=== PATIENT | female | born 1995 ===

== ENCOUNTER 2024-02-18 08:32 | Outpatient (AMB) | payer OTHER, SELFPAY ==
--- NOTE | 2024-02-18 08:33 | MHC.OFFVIS ---
Vital Signs 02/18/24 08:41 Height 5 ft 2 in Weight 202 lb 6.15 oz BMI 37.0 BP 124/74 Blood Pressure Location Rt brachial Position Sitting Pulse 97 Intake Visit Reasons: Abdominal pain/Nausea/Bloating Intake Note: New patient in office today for abd pain, nausea, and abdominal bloating. CC: Patient c/o nausea, abdominal bloating, constipation, and vomiting in the past. Symptoms are worst after eating. Allergies lactose Allergy (Unknown, Verified 02/18/24 08:44) Unknown No Known Drug Allergies Allergy (Unknown, Verified 02/18/24 08:44) none HPI HPI Abdominal pain/Nausea/Bloating: Details: 28-year-old female here for initial evaluation of abdominal pain nausea and bloating. She is referred by [facility] in [place]. P.m. X Obesity Depression Gestational diabetes GERD Constipation * SURGICAL HISTORY PT denies * ALLERGIES Lactose * PharmaIN LABS: No labs TODAY'S VISIT Onset 3 years ago. She suffers CIC all of her life, now she is having bloating with any food eaten and nausea. The pain starts midline but will spread to the entire abd when she is very bloated as a aching pain. She is 1 year post . She only moves her bowel 1-2 times a week. She has used fiber, Miralax, dulcolax w/o good relief. When she is really backed up she will vomit and have a BM at the same time with sweating and dizziness. Her grandmother had TICS and CIC. metabolic syndrome in family. No med changes, no health changes, not diet changes. She drinks a lot of water and likes her vegetables. No much caffeine, soda etc. No ETOH. She does have a family history of gallbladder disease. She is uncertain whether anyone has checked her thyroid function. This sounds like severe chronic idiopathic constipation so will get some basic labs to be thorough but I will start her on Linzess 145 micro g and titrate to affect her side effect. If controlling the constipation controls the nausea vomiting and bloating, which I suspect it will, then no further workup will be needed. If it does not then we will consider whether gastric emptying studies etc. need to be obtained. Return office visit in 6 weeks [facility] Medical History Obese Heartburn Depression Gestational diabetes Constipation Surgical History No pertinent past surgical history Family History Mother Asthma Migraine Father Asthma Maternal Grandfather Diabetes mellitus Maternal Grandmother CAD (coronary artery disease) Diabetes mellitus Brother Asthma Social History Alcohol intake: never Patient Tobacco Use Status: Never used Tobacco Review of Systems Const Denies fatigue, Denies fever(s), Denies night sweats, Denies poor appetite and Denies weight loss ENT Reports Normal hearing present, Denies dental pain, Denies dysphagia, Denies hearing loss, Denies mouth pain, Denies odynophagia, Denies throat swelling, Denies tongue swelling and Reports other (Dentition adequate) Card Reports no additional complaints Resp Reports no additional complaints GI Details: Reports abdominal pain, Denies melena, Reports bloating, Denies hematochezia, Reports constipation, Denies GI cramping, Denies dysphagia, Denies excessive flatus, Denies early satiety, Denies heartburn, Denies diarrhea, Reports nausea, Denies odynophagia, Reports vomiting and Denies hematemesis Skin/Breast Denies pruritus, Denies lesions, Denies rash and Denies jaundice Neuro Reports Normal hearing present and Denies Abnormal speech present Endo Denies fatigue Aller/Immun Denies throat swelling and Denies tongue swelling Physical Exam Vital Signs: Last Vital Signs Pulse 97 02/18/24 08:41 BP 124/74 02/18/24 08:41 BMI result Body Mass Index 37.0 Const General: cooperative, no acute distress, well developed and well groomed Nutritional Appearance: well nourished and obese Orientation/consciousness: oriented to person, oriented to place and oriented to time Limitations: No language barrier HEENT Head: Yes normocephalic and Yes atraumatic Eyes General: appearance normal, both eyes and all related structures Pupils: Equal, round and reactive pupils present Neck Neck: Yes normal visual inspection and Yes no lymphadenopathy Thyroid: Thyroid normal Resp Effort & Inspection: normal respiratory effort and able to speak in complete sentences Auscultation: clear to auscultation bilaterally Cardio Rate: regular rate Rhythm: regular rhythm Heart sounds: Normal, physiologic split S2 sound present Peripheral pulses: radial pulses present and posterior tibial pulses present GI Inspection: No distended, No Abdominal panniculus present and Yes obesity Palpation (GI): Soft to palpation, nontender, no guarding, not rigid and No hepatosplenomegaly present Percussion: Yes normal to percussion Auscultation: normal bowel sounds Rectal Exam - Female: deferred Skin General skin exam: no rashes or lesions noted, turgor normal, skin not dry, no jaundice, No spider nevi and no striae Rashes: no rashes Nails: normal Neuro General: oriented to person, oriented to place and oriented to time Cranial nerves: Yes Equal, round and reactive pupils present and Yes Normal hearing present Speech: No Abnormal speech present Extrem General: Yes normal to inspection, No clubbing, No cyanosis and No edema Psych Appearance: grossly normal and well kempt Mental Status: mental status grossly normal Speech and movement: Normal speech and movement present Affect: normal affect Attitude: cooperative Thought process: Normal thought process present and not confabulating Thought content: Normal thought content present Insight: Fair insight present (Psych) Judgement: Fair judgement present (Psych) Assessment & Plan Assessment & Plan (1) Chronic idiopathic constipation: Code(s): K59.04 - Chronic idiopathic constipation Category: Medical Plan Onset 3 years ago. She suffers CIC all of her life, now she is having bloating with any food eaten and nausea. The pain starts midline but will spread to the entire abd when she is very bloated as a aching pain. She is 1 year post . She only moves her bowel 1-2 times a week. She has used fiber, Miralax, dulcolax w/o good relief. When she is really backed up she will vomit and have a BM at the same time with sweating and dizziness. Her grandmother had TICS and CIC. metabolic syndrome in family. No med changes, no health changes, not diet changes. She drinks a lot of water and likes her vegetables. No much caffeine, soda etc. No ETOH. She does have a family history of gallbladder disease. She is uncertain whether anyone has checked her thyroid function. This sounds like severe chronic idiopathic constipation so will get some basic labs to be thorough but I will start her on Linzess 145 micro g and titrate to affect her side effect. If controlling the constipation controls the nausea vomiting and bloating, which I suspect it will, then no further workup will be needed. If it does not then we will consider whether gastric emptying studies etc. need to be obtained. Return office visit in 6 weeks Orders: Orders Complete Blood Count Auto Diff Today K59.04 - Chronic idiopathic constipation UA CC w/rflx Micro + Cult Today K59.04 - Chronic idiopathic constipation US abdomen complete Today K59.04 - Chronic idiopathic constipation TSH reflex Free T4 Today K59.04 - Chronic idiopathic constipation Comprehensive Met. Panel Today K59.04 - Chronic idiopathic constipation Medications: New linaclotide (Linzess) Take first thing in the morning with a full glass of water. 145 mcg PO QAM 30 caps 3RF K58.1 - Irritable bowel syndrome with constipation Coding Level of Care Code New Pt Level 3 (57599) Diagnoses Chronic idiopathic constipation K59.04
[2024-02-18 08:41] VITALS: BP 124/74; PULSE 97; BMI 37.0
== END 2024-02-18 09:04 | disposition home or self-care (01) ==
LOC: HO.HGI 08:33
PROVIDERS: PCP Internal Medicine; Visit Provider Nurse Practitioner
DX: K59.04 Chronic idiopathic constipation (principal)
CPT/HCPCS: 99203

== ENCOUNTER 2024-02-18 08:32 | Outpatient (REF) | payer OTHER, SELFPAY ==
[2024-02-18 09:27] LABS: MANUAL DIFF FLAG NO
[2024-02-18 09:44] LABS: Basophils Absolute Auto 0.1 X10*3/uL (0.0-0.2); Basophils Percent Auto 0.7 % (0-2); Eosinophils Absolute Auto 0.2 X10*3/uL (0.0-0.4); Eosinophils Percent Auto 1.8 % (0-4); Imm Gran Abs Auto 0.03 X10*3/uL (0.00-0.03); Imm Gran Pct Auto 0.3 % (0.0-0.4); Lymphocytes Absolute Auto 1.8 X10*3/uL (1.2-4.9); Lymphocytes Percent Auto 20.8 % (20-40); Mean Corpuscular HGB Conc 34.1 g/dl (31.0-35.0); Mean Corpuscular Hemoglobin 28.1 pg (27.0-33.0); Mean Corpuscular Volume 82.2 fL (80.0-98.0); Mean Platelet Volume 9.9 fL (9.4-12.3); Monocytes Absolute Auto 0.5 X10*3/uL (0.1-1.2); Monocytes Percent Auto 5.4 % (2-11); Neutrophils Absolute Auto 6.2 x10*3/uL (2.0-8.3); Platelet Count 316 X10*3/uL (160-400); Red Blood Count 4.99 X10*6/uL (4.20-5.50); Red Cell Distribution Width 13.4 % (11.0-16.0); White Blood Count 8.8 X10*3/uL (4.8-10.8)
[2024-02-18 10:01] LABS: Appearance Urine Clear; Color Urine Yellow; Glucose Urine UA Negative (Negative); Leukocyte Esterase Urine Negative (Negative); Nitrite Urine Negative (Negative); PH 6.5 (5.0-9.0); Specific Gravity - Urine >= 1.030 (1.005-1.025); Urine Blood Negative (Negative); Urine Ketones Negative (Negative); Urine Protein Negative (Neg-Trace)
[2024-02-18 10:27] LABS: Alanine Aminotransferase 39 U/L (0-31); Albumin Level 4.4 g/dL (3.5-5.0); Alkaline Phosphatase 74 U/L (39-117); Anion Gap 13 (12-20); Aspartate Amino Transferase 20 U/L (5-31); Bilirubin Total 0.3 mg/dL (0.0-1.0); Blood Urea Nitrogen 13 mg/dL (9-16); Calcium 9.6 mg/dL (8.4-10.2); Carbon Dioxide 25 mmol/L (22-29); Chloride 104 mmol/L (96-108); Estimated Glomerular Filt Rate > 60; Glucose Random 94 mg/dL (60-115); Potassium 4.1 mmol/L (3.3-5.1); Sodium 138 mmol/L (135-145); Total Protein 7.6 g/dL (6.5-8.0)
[2024-02-18 10:42] LABS: TSH reflex Free T4 0.84 uIU/mL (0.32-4.0)
== END 2024-02-18 08:33 | disposition home or self-care (01) ==
LOC: HO.LAB 08:32
PROVIDERS: PCP Internal Medicine; Visit Provider Nurse Practitioner
DX: K58.1 Irritable bowel syndrome with constipation (principal); K59.04 Chronic idiopathic constipation; R10.9 Unspecified abdominal pain; R11.0 Nausea; R14.0 Abdominal distension (gaseous)
CPT/HCPCS: 36415; 80053; 81003; 84443; 85025; 99202

== ENCOUNTER 2024-02-24 08:36 | Outpatient (REF) | payer OTHER, SELFPAY ==
--- NOTE | ~2024-02-24 | US_ITS ---
EXAMINATION: US ABDOMEN COMPLETE CLINICAL INFORMATION: Chronic idiopathic constipation; abdominal pain. COMPARISON: None available. TECHNIQUE: Real-time imaging of the abdominal viscera. FINDINGS: PANCREAS: Normal. ABDOMINAL AORTA: The proximal, mid, and distal segments are normal in caliber. INFERIOR VENA CAVA: Imaging limited by overlapping bowel gas. LIVER: There is hepatomegaly, with a longitudinal span of 20.2 cm. The liver contour is normal. There is diffuse increased liver parenchymal echogenicity, with pericholecystic sparing. No focal hepatic lesion. There is no intrahepatic biliary duct dilatation seen. GALLBLADDER: Normal. The gallbladder is physiologically distended without evidence of stones, sludge, polyps, wall thickening or pericholecystic fluid. COMMON BILE DUCT: Normal in caliber measuring 0.3 cm in diameter. RIGHT KIDNEY: Normal. No hydronephrosis. No renal calculi or focal parenchymal lesions. The kidney measures 11.6 cm in maximum dimension. LEFT KIDNEY: Normal. No hydronephrosis. No renal calculi or focal parenchymal lesions. The kidney measures 12.0 cm in maximum dimension. SPLEEN: Normal. The spleen measures 11.5 cm in maximum dimension. FREE FLUID: None. US/US abdomen complete IMPRESSION: 1. There is hepatomegaly. 2. There is generalized increase in hepatic echotexture, consistent with fatty infiltration or hepatocellular disease. Please correlate clinically. Characteristic pericholecystic sparing favors fatty infiltration. No focal hepatic mass or intrahepatic biliary dilatation is seen.
== END 2024-02-24 08:37 | disposition home or self-care (01) ==
LOC: HO.US 08:36
PROVIDERS: PCP Internal Medicine; Visit Provider Nurse Practitioner
DX: K59.04 Chronic idiopathic constipation (principal)
CPT/HCPCS: 76700

== ENCOUNTER → 2024-02-29 10:04 | Outpatient (BNVA) | payer OTHER, SELFPAY | PROVIDERS: PCP Internal Medicine; Visit Provider Physician Assistant Surgical ==

== ENCOUNTER 2024-03-23 09:37 | Outpatient (AMB) | payer OTHER, SELFPAY ==
--- NOTE | 2024-03-23 09:41 | A.OFFVIS_ITS ---
Vital Signs 03/23/24 09:42 Height 5 ft 2 in Weight 206 lb 5.643 oz BMI 37.7 BP 128/80 Blood Pressure Location Lt femoral Position Sitting Pulse 74 Intake Visit Reasons: Follow up 4 weeks Intake Note: Cynthia presents to in office today in follow up of US and labs. CC: Patient reports that he only took Linzess twice because she had diarrhea but she felt a lot better after emptying her bowels. Denies any new GI symptoms. Retort Firer Required: No Allergies lactose Allergy (Unknown, Verified 03/23/24 10:10) Unknown No Known Drug Allergies Allergy (Unknown, Verified 03/23/24 10:10) none HPI HPI Follow up 4 weeks: Details: Assessment & Plan (1) Chronic idiopathic constipation: Code(s): K59.04 - Chronic idiopathic constipation Category: Medical Plan Onset 3 years ago. She suffers CIC all of her life, now she is having bloating with any food eaten and nausea. The pain starts midline but will spread to the entire abd when she is very bloated as a aching pain. She is 1 year post . She only moves her bowel 1-2 times a week. She has used fiber, Miralax, dulcolax w/o good relief. When she is really backed up she will vomit and have a BM at the same time with sweating and dizziness. Her grandmother had TICS and CIC. metabolic syndrome in family. No med changes, no health changes, not diet changes. She drinks a lot of water and likes her vegetables. No much caffeine, soda etc. No ETOH. She does have a family history of gallbladder disease. She is uncertain whether anyone has checked her thyroid function. This sounds like severe chronic idiopathic constipation so will get some basic labs to be thorough but I will start her on Linzess 145 micro g and titrate to affect her side effect. If controlling the constipation controls the nausea vomiting and bloating, which I suspect it will, then no further workup will be needed. If it does not then we will consider whether gastric emptying studies etc. need to be obtained. Return office visit in 6 weeks Orders: Orders Complete Blood Count Auto Diff Today K59.04 - Chronic idiopathic constipation UA CC w/rflx Micro + Cult Today K59.04 - Chronic idiopathic constipation US abdomen complete Today K59.04 - Chronic idiopathic constipation TSH reflex Free T4 Today K59.04 - Chronic idiopathic constipation Comprehensive Met. Panel Today K59.04 - Chronic idiopathic constipation Medications: New linaclotide (Linzess) Take first thing in the morning with a full glass of water. 145 mcg PO QAM 30 caps 3RF K58.1 - Irritable bowel syndrome with constipation LABS: Laboratory Tests 02/18/24 09:25 WBC 8.8 Hgb 14.0 Hct 41.0 Plt Count 316 Estimated GFR > 60 Total Bilirubin 0.3 AST 20 ALT 39 H Alkaline Phosphatase 74 Laboratory Tests 02/18/24 09:25 TSH 0.84 02/18/24-[address]: Kristy Acosta MD ORDERED: Ua Clean Catch QUERIES: Source: Urine, Clean Catch Test Result Flag Reference Ur Color Yellow Ur Appear Clear PH 6.5 5.0-9.0 Ur Glu Negative Negative mg/dL Urine Blood Negative Negative Spec [place] Ur >= 1.030 H 1.005-1.025 Urine Protein Negative Neg-Trace mg/dL Urine Ketones Negative Negative mg/dL Ur Nitrite Negative Negative Ur Cuong Esterase Negative Negative ULTRASOUND OF THE ABDOMEN 03/14/24 FINDINGS: PANCREAS: Normal. ABDOMINAL AORTA: The proximal, mid, and distal segments are normal in caliber. INFERIOR VENA CAVA: Imaging limited by overlapping bowel gas. LIVER: There is hepatomegaly, with a longitudinal span of 20.2 cm. The liver contour is normal. There is diffuse increased liver parenchymal echogenicity, with pericholecystic sparing. No focal hepatic lesion. There is no intrahepatic biliary duct dilatation seen. GALLBLADDER: Normal. The gallbladder is physiologically distended without evidence of stones, sludge, polyps, wall thickening or pericholecystic fluid. COMMON BILE DUCT: Normal in caliber measuring 0.3 cm in diameter. RIGHT KIDNEY: Normal. No hydronephrosis. No renal calculi or focal parenchymal lesions. The kidney measures 11.6 cm in maximum dimension. LEFT KIDNEY: Normal. No hydronephrosis. No renal calculi or focal parenchymal lesions. The kidney measures 12.0 cm in maximum dimension. SPLEEN: Normal. The spleen measures 11.5 cm in maximum dimension. FREE FLUID: None. US/US abdomen complete IMPRESSION: 1. There is hepatomegaly. 2. There is generalized increase in hepatic echotexture, consistent with fatty infiltration or hepatocellular disease. Please correlate clinically. Characteristic pericholecystic sparing favors fatty infiltration. No focal hepatic mass or intrahepatic biliary dilatation is seen. TODAY'S VISIT She has only been taking Linzess 145 micro g once a week because it gives her diarrhea for 3 days if she takes it too often. Obviously the doses too high. However, this did reduce her pain although she still has some bloating. I think the bloating persists because were not moving the bowels consistently every day so will lower the dose to 72 micro g and see if we can find a consistent dosing regimen. We reviewed the labs and the ultrasound and there is absolutely nothing concerning; specifically there is no gallstones. This also the possibility of biliary dyskinesia but I do not think her symptoms are convincing for that and we do not need to do tests unless not controlling the constipation and or more rudimentary interventions do not work. Return office visit in 6 weeks [facility] Medical History Obese Heartburn Depression Gestational diabetes Constipation Surgical History No pertinent past surgical history Family History Mother Asthma Migraine Father No known health problems Maternal Grandfather Diabetes mellitus Maternal Grandmother CAD (coronary artery disease) Diabetes mellitus Brother Asthma Daughter No known health problems Social History Alcohol intake: never Patient Tobacco Use Status: Never used Tobacco Review of Systems Const Denies fatigue, Denies fever(s), Denies night sweats, Denies poor appetite and Denies weight loss ENT Reports Normal hearing present, Denies dental pain, Denies dysphagia, Denies hearing loss, Denies mouth pain, Denies odynophagia, Denies throat swelling, Denies tongue swelling and Reports other (Dentition adequate) Card Reports no additional complaints Resp Reports no additional complaints GI Details: Denies abdominal pain, Denies melena, Reports bloating, Denies hematochezia, Reports constipation, Denies GI cramping, Denies dysphagia, Denies excessive flatus, Denies early satiety, Denies heartburn, Denies diarrhea, Denies nausea, Denies odynophagia, Denies vomiting and Denies hematemesis Skin/Breast Denies pruritus, Denies lesions, Denies rash and Denies jaundice Neuro Reports Normal hearing present and Denies Abnormal speech present Endo Denies fatigue Aller/Immun Denies throat swelling and Denies tongue swelling Physical Exam Vital Signs: Last Vital Signs Pulse 74 03/23/24 09:42 BP 128/80 03/23/24 09:42 BMI result Body Mass Index 37.7 Const General: cooperative, no acute distress, well developed and well groomed Nutritional Appearance: well nourished and obese Orientation/consciousness: oriented to person, oriented to place and oriented to time Limitations: No language barrier HEENT Head: Yes normocephalic and Yes atraumatic Eyes General: appearance normal, both eyes and all related structures Pupils: Equal, round and reactive pupils present Neck Neck: Yes normal visual inspection and Yes no lymphadenopathy Thyroid: Thyroid normal Resp Effort & Inspection: normal respiratory effort and able to speak in complete sentences Auscultation: clear to auscultation bilaterally Cardio Rate: regular rate Rhythm: regular rhythm Heart sounds: Normal, physiologic split S2 sound present Peripheral pulses: radial pulses present and posterior tibial pulses present GI Inspection: No distended, No Abdominal panniculus present and Yes obesity Palpation (GI): Soft to palpation, nontender, no guarding, not rigid and No hepatosplenomegaly present Percussion: Yes normal to percussion Auscultation: normal bowel sounds Rectal Exam - Female: deferred Skin General skin exam: no rashes or lesions noted, turgor normal, skin not dry, no jaundice, No spider nevi and no striae Rashes: no rashes Nails: normal Neuro General: oriented to person, oriented to place and oriented to time Cranial nerves: Yes Equal, round and reactive pupils present and Yes Normal hearing present Speech: No Abnormal speech present Extrem General: Yes normal to inspection, No clubbing, No cyanosis and No edema Psych Appearance: grossly normal and well kempt Mental Status: mental status grossly normal Speech and movement: Normal speech and movement present Affect: normal affect Attitude: cooperative Thought process: Normal thought process present and not confabulating Thought content: Normal thought content present Insight: Limited insight present (Psych) Judgement: Limited judgement present (Psych) Results Reviewed Results Reviewed: Laboratory Tests 02/18/24 09:25 WBC 8.8 Hgb 14.0 Hct 41.0 Plt Count 316 Estimated GFR > 60 Total Bilirubin 0.3 AST 20 ALT 39 H Alkaline Phosphatase 74 Laboratory Tests 02/18/24 09:25 TSH 0.84 02/18/24-0915 [facility] DR: Kristy Acosta MD ORDERED: Ua Clean Catch QUERIES: Source: Urine, Clean Catch Test Result Flag Reference Ur Color Yellow Ur Appear Clear PH 6.5 5.0-9.0 Ur Glu Negative Negative mg/dL Urine Blood Negative Negative Spec [place] Ur >= 1.030 H 1.005-1.025 Urine Protein Negative Neg-Trace mg/dL Urine Ketones Negative Negative mg/dL Ur Nitrite Negative Negative Ur Cuong Esterase Negative Negative ULTRASOUND OF THE ABDOMEN 03/14/24 FINDINGS: PANCREAS: Normal. ABDOMINAL AORTA: The proximal, mid, and distal segments are normal in caliber. INFERIOR VENA CAVA: Imaging limited by overlapping bowel gas. LIVER: There is hepatomegaly, with a longitudinal span of 20.2 cm. The liver contour is normal. There is diffuse increased liver parenchymal echogenicity, with pericholecystic sparing. No focal hepatic lesion. There is no intrahepatic biliary duct dilatation seen. GALLBLADDER: Normal. The gallbladder is physiologically distended without evidence of stones, sludge, polyps, wall thickening or pericholecystic fluid. COMMON BILE DUCT: Normal in caliber measuring 0.3 cm in diameter. RIGHT KIDNEY: Normal. No hydronephrosis. No renal calculi or focal parenchymal lesions. The kidney measures 11.6 cm in maximum dimension. LEFT KIDNEY: Normal. No hydronephrosis. No renal calculi or focal parenchymal lesions. The kidney measures 12.0 cm in maximum dimension. SPLEEN: Normal. The spleen measures 11.5 cm in maximum dimension. FREE FLUID: None. US/US abdomen complete IMPRESSION: 1. There is hepatomegaly. 2. There is generalized increase in hepatic echotexture, consistent with fatty infiltration or hepatocellular disease. Please correlate clinically. Characteristic pericholecystic sparing favors fatty infiltration. No focal hepatic mass or intrahepatic biliary dilatation is seen. Assessment & Plan Assessment & Plan (1) Chronic idiopathic constipation: Code(s): K59.04 - Chronic idiopathic constipation Category: Medical Plan She has only been taking Linzess 145 micro g once a week because it gives her diarrhea for 3 days if she takes it too often. Obviously the doses too high. However, this did reduce her pain although she still has some bloating. I think the bloating persists because were not moving the bowels consistently every day so will lower the dose to 72 micro g and see if we can find a consistent dosing regimen. We reviewed the labs and the ultrasound and there is absolutely nothing concerning; specifically there is no gallstones. This also the possibility of biliary dyskinesia but I do not think her symptoms are convincing for that and we do not need to do tests unless not controlling the constipation and or more rudimentary interventions do not work. Return office visit in 6 weeks Medications: New linaclotide (Linzess) 72 mcg PO QAM 30 caps 6RF K59.04 - Chronic idiopathic constipation On Hold linaclotide (Linzess) Hold Comment: Doctor's Order 145 mcg PO QAM 30 caps 3RF K58.1 - Irritable bowel syndrome with constipation Coding Level of Care Code Est Pt Level 3 (36849) Diagnoses Chronic idiopathic constipation K59.04
[2024-03-23 09:42] VITALS: BP 128/80; PULSE 74; BMI 37.7
== END 2024-03-23 10:34 | disposition home or self-care (01) ==
PROVIDERS: PCP Internal Medicine; Visit Provider Nurse Practitioner
DX: K59.04 Chronic idiopathic constipation (principal)
CPT/HCPCS: 99213

== ENCOUNTER → 2024-03-23 09:37 | Outpatient (BNVA) | payer OTHER, SELFPAY | PROVIDERS: PCP Internal Medicine; Visit Provider Nurse Practitioner | DX: K59.04 Chronic idiopathic constipation (principal) | CPT/HCPCS: 99212 ==

== ENCOUNTER 2024-03-30 09:53 | Outpatient (AMB) | payer OTHER, SELFPAY ==
--- NOTE | 2024-03-30 10:03 | A.OFFVIS_ITS ---
VS Expanded 03/30/24 10:11 BP 122/85 Blood Pressure Location Rt brachial Blood Pressure Position Sitting Pulse 85 Pulse Source Pulse Oximeter Temp 96.9 F Temperature Source Temporal Artery Scan Pulse Oximetry 85 L Oxygen Delivery Method Room Air Height 5 ft 2 in Weight 195 lb 12.8 oz BMI 35.8 Body Fat % 39.2 Body Fat Mass 76.8 Fat Free Mass 119.0 Visceral Fat Rating 8.0 Body Water % 43.7 Body Water Mass 85.6 Muscle Mass/Score 113.0 Basal Metabolic Rate/Score 1,678 Intake Visit Reasons: (ov) [employer] SWL Executive Director Required: No Allergies lactose Allergy (Unknown, Verified 03/30/24 10:03) Unknown No Known Drug Allergies Allergy (Unknown, Verified 03/30/24 10:03) none Medication List - Last Reconciled 03/30/24 by BARBRA Garcia linaclotide (Linzess) 145 mcg PO QAM linaclotide (Linzess) 72 mcg PO QAM HPI Comments Details: Pt is here to start the [facility] Weight Management surgical weight loss program. She heard about our program from a friend. Her goal is to lose weight and achieve a healthy lifestyle. She reports first being concerned about her weight over the last 2 years, highest weight to date was 250. Weight at the time of presentation the the P on 02/29/24 was 203.2 pounds with a BMI of 37.2. Current weight is 195.8 pounds with a BMI of 35.8. She has tried multiple methods of weight loss including fad diets without permanent results. She lives with her daughter. 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 She wakes at:?5 am, and goes to bed at?9 pm. Dinner is at 5. Breakfast: eggs, toast, prabhakar AM snack: skip Lunch: rice, pasta, salmon, veg PM snack: skip Dinner: yogurt, same as lunch After dinner: skip Other snacks: fruit, yogurt Liquids: 160 oz water, no soda, no juice Alcohol/marijuana/tobacco intake: none Exercise: none, gym memebrship at GERD score: 9 SHELBY score: 0 ESS score: 12 QOL score: 57 PFSH Medical History Obese Heartburn Depression Gestational diabetes Constipation Surgical History No pertinent past surgical history Family History Mother Asthma Migraine Father No known health problems Maternal Grandfather Diabetes mellitus Maternal Grandmother CAD (coronary artery disease) Diabetes mellitus Brother Asthma Daughter No known health problems Social History Alcohol intake: never Patient Tobacco Use Status: Never used Tobacco Physical Exam Vital Signs: Last Vital Signs Temp 96.9 F 03/30/24 10:11 Pulse 85 03/30/24 10:11 BP 122/85 03/30/24 10:11 Pulse Ox 85 L 03/30/24 10:11 Oxygen Delivery Method Room Air 03/30/24 10:11 BMI result Body Mass Index 35.8 Const General: cooperative, healthy appearing and no acute distress Orientation/consciousness: patient oriented x3 HEENT Head: Yes normal to inspection Ears: hearing grossly normal bilaterally General nose exam: Normal external nose present Face and sinus: Yes normal facial exam Eyes General: appearance normal, both eyes and all related structures Resp Effort & Inspection: normal respiratory effort Auscultation: clear to auscultation bilaterally Cardio Rate: regular rate Rhythm: regular rhythm Heart sounds: S1 normal heart sound present and S2 normal heart sound present GI Inspection: Yes normal to inspection, No distended and Yes obesity Palpation (GI): Soft to palpation, nontender and no guarding Auscultation: normal bowel sounds Skin General skin exam: no rashes or lesions noted Neuro General: patient oriented x3 Extrem General: No edema Psych Appearance: grossly normal Mental Status: mental status grossly normal Speech and movement: Normal speech and movement present Affect: normal affect Attitude: cooperative Assessment & Plan Assessment & Plan (1) Obesity (BMI 30-39.9): Code(s): E66.9 - Obesity, unspecified Category: Medical Plan: This is a?28 yo female who will start our SWL program to prepare for bariatric surgery.? Blood work, CXR, ECG, Abd US and UGI have been ordered. She is being scheduled for initial consultations. She will start SWL classes and watch the first three videos before her next appointment. 1. You have been given a paper with a link to our software treva ([email or web address]) to generate an individualized nutritional and exercise plan specific for you. Please send me a screenshot of the plans you will generate Meal to include lean meat (beef, fish, pork, turkey, chicken), or cypriot yogurt, or egg whites, or beans with a salad with olive oil and fruits (berries, pears, apples, kiwi). Avoid salt, breads, potatoes, rice, pasta, desserts. 2. If you choose shakes, each shake would be drunk slowly, like coffee over a period of 2 hours. 3. If you choose bars, cut each bar in 4 pieces and eat each piece in 30 min to make each bar last 2 hours. 4. I emphasized the importance of measuring accurately the food portion and measure it when serving the food on a plate 5. The meal portions include a specific number of forks of meat (protein) and salad. You always eat the meat portion but you can replace up to half of salad/vegetables portion with rice, potatoes or pasta, or a fruit ?if you like. The less you do it the better weight loss will be. 6. One full-size fork is what can be scooped on the fork without falling aside and not what can be bit with the fork. Use regular forks like those you find in a typical restaurant. 7.? Please send me weight measurements from your body composition scale as soon as possible and then once a week. Always include your diet and exercise plan. The best time to weigh yourself is first thing in the morning after going to the bathroom. 8. The best choice for exercise would be going back to [employer] where you a gym membership and using the treadmill, elliptical, stationary bike. Alternatively start walking outside daily, tracking calories with a goal of 300 calories per day, daily. You can download the treva [employer] which can track your time, distance and calories while walking outside. You press start in the treva when you start and then stop when you are finished. 9.?Goal is to lose at least 1.5-2 lbs per week, and about 10% before surgery, which is about 20 pounds 10. Please follow the diet plan exactly without any change. If you don't like something about the plan or you feel hungry you need to communicate with me so I can help you revise the plan. My cell phone number to communicate with me by text is [phone] Patient is morbidly obese and is not considered stable at this time.?I spent a total of 70 minutes reviewing/updating records, examining the patient and counseling the patient on weight management as detailed above. Orders: Orders Insulin Today E66.9 - Obesity, unspecified Hemoglobin A1c Today E66.9 - Obesity, unspecified Lipid Panel Today E66.9 - Obesity, unspecified IRON PROFILE Today E66.9 - Obesity, unspecified Vitamin B12 and Folate Today E66.9 - Obesity, unspecified Vitamin A Today E66.9 - Obesity, unspecified Ferritin Today E66.9 - Obesity, unspecified Vitamin D 25-OH Total Today E66.9 - Obesity, unspecified XR chest 2V Today E66.9 - Obesity, unspecified ECG 12 lead EKG Today E66.9 - Obesity, unspecified FL upper GI w air Today E66.9 - Obesity, unspecified Zinc Today E66.9 - Obesity, unspecified C Reactive Protein Today E66.9 - Obesity, unspecified Vitamin B1 Today E66.9 - Obesity, unspecified TSH reflex Free T4 Today E66.9 - Obesity, unspecified Referrals Behavioral Health Referral E66.9 - Obesity, unspecified
[2024-03-30 10:11] VITALS: BP 122/85; PULSE 85; TEMP 36.1; O2SAT 85; BMI 35.8
== END 2024-03-30 10:58 | disposition home or self-care (01) ==
PROVIDERS: PCP Internal Medicine; Visit Provider Physician Assistant Surgical
DX: E66.9 Obesity, unspecified (principal); Z68.35 Body mass index [BMI] 35.0-35.9, adult
CPT/HCPCS: 99205

== ENCOUNTER → 2024-03-30 09:53 | Outpatient (BNVA) | payer OTHER, SELFPAY | PROVIDERS: PCP Internal Medicine; Visit Provider Physician Assistant Surgical | DX: E66.9 Obesity, unspecified (principal); Z68.35 Body mass index [BMI] 35.0-35.9, adult | CPT/HCPCS: 99202 ==